=== PATIENT | male | born 2000 | race Caucasian/White ===

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

== ENCOUNTER 2022-12-14 10:17 | Emergency (ER) | payer OTHER, MEDICAID, SELFPAY ==
[2022-12-14 10:18] VITALS: BP 152/103; PULSE 71; RESP 16; TEMP 36.1; O2SAT 100; BMI 33.7
--- NOTE | 2022-12-14 10:57 | CM.ED ---
Social Work SW spoke with patient regarding no PCP and gave provider resources. Karli Chavez VOCATIONAL TECHNICAL EDUCATION DIRECTOR, CHIEF CREDIT OFFICER
[2022-12-14] MEDS: 0.9% Normal Saline 1,000 ML 1000 ML IV (11:26)
[2022-12-14] MEDS: diazePAM 5 MG Tablet 2.5 MG PO (11:30)
[2022-12-14 11:32] LABS: Absolute Lymphocyte Count 2.19 X10^3/uL (0.83-4.51); Absolute Neutrophil Count 3.7 X10^3/uL (2.0-7.7); Basophil# 0.05 X10^3/uL; Basophil% 0.7 % (0-1); Eosinophil# 0.26 X10^3/uL; Eosinophils% 3.8 % (0-5); Hematocrit 42.3 % (40-54); Hemoglobin 13.8 g/dL (13.0-16.5); Lymphocyte # 2.19 X10^3/ul (0.83-4.51); Lymphocyte % 32.3 % (19-41); Mean Corp Hgb Conc 32.6 g/dL (32-36); Mean Corpuscular Hgb 28.4 pg (27.0-32.0); Mean Platelet Vol. 9.1 fl (6.2-12.0); Monocyte# 0.51 X10^3/uL; Monocyte% 7.5 % (0-10); NRBC Flagged by Analyzer 0 % (0-5); Neutrophil # 3.74 X10^3/uL (2.7-7.7); Neutrophil % 55.4 % (47-70); Platelet Count 358 K/mm3 (150-450); RBC Distribution Width CV 13.2 % (11.6-14.6); RBC Distribution Width SD 41.4 fl (35.1-43.9); Red Blood Count 4.86 M/mm3 (4.6-6.2); White Blood Count 6.8 K/mm3 (4.4-11.0)
[2022-12-14 11:47] LABS: Anion Gap 5 (5-15); BUN 13 mg/dL (7-18); BUN/Creat Ratio 17.9 RATIO (10-20); Calcium,Total 9.2 mg/dL (8.5-10.1); Chloride 108 mmol/L (98-107); Creatinine, Serum 0.73 mg/dL (0.70-1.30); EST Glomerular Filtration Rate 144 mL/min (>60); Est Glom Filt Rate - Afr Amer 175 mL/min (>60); Estimated Creatinine Clearance 212.14 ml/min; Glucose 103 mg/dL (74-106); Potassium 4.2 mmol/L (3.5-5.1); Sodium Level 140 mmol/L (136-145)
--- NOTE | 2022-12-14 12:10 | EX.ED.DYSGE1 ---
HPI History of Present Illness Chief Complaint: Dizziness Informant: patient Onset/Context/Timing Onset: Yesterday Context: Gradual Onset Timing: Continuous Quality: Moving sensation Location: Generalized Worsened by: Head movement Relieved by: Laying down Narrative Narrative: Patient present with dizziness that began yesterday. Patient describes as a moving and spinning sensation. Patient states it is worse whenever he moves his head. Patient states it is better whenever he lays down. Patient denies any hearing changes or tinnitus. Patient denies any pain in his ears. Patient does admit to some nausea but denies any vomiting. Patient admits to a mild headache. Patient denies any fevers or chills. PFSH PFS Medical History (Updated 12/14/22 @ 12:[address] Duong Bean DO) Hx of vertigo Home Medications diazepam 2 mg tablet 2 mg PO TID PRN PRN Vertigo #10 TABLETS 12/14/22 [Rx Last Taken Unknown] Allergy/AdvReac Type Severity Reaction Status Date / Time banana Allergy Anaphylaxis Verified 12/14/22 10:19 carrot Allergy Anaphylaxis Verified 12/14/22 10:19 cefpodoxime [From Vantin] Allergy Hives Verified 12/14/22 10:19 watermelon Allergy Anaphylaxis Verified 12/14/22 10:19 Surgical History (Updated 12/14/22 @ 12:[address] Duong Bean DO) Hx of tonsillectomy Social History Smoking Status: Never smoker ROS ROS ED Constitutional Constitutional ED: Denies chills or fever(s) Eyes Eyes: Denies blurry vision or change in vision ENT ENT ED: Denies rhinorrhea or sore throat Cardiovascular Cardiovascular: Denies chest pain or palpitations Respiratory/Chest Respiratory/Chest: Denies cough or dyspnea Gastrointestinal Gastrointestinal: Reports nausea; Denies vomiting Genitourinary Genitourinary ED: Denies dysuria or hematuria Musculoskeletal Musculoskeletal: Denies back pain or neck pain Integumentary Denies abscess or rash Neurologic Neurologic: Reports headache(s); Denies weakness Allergic/Immunologic Allergic/Immunologic ED: Denies mouth swelling or urticaria EXAM Physical Exam Const Vital Signs: 12/14/22 10:18 12/14/22 10:45 Temperature 97.0 F L Temperature Source Temporal Pulse Rate 71 Respiratory Rate 16 Respiratory Effort Normal Non-Labored Blood Pressure 152/103 H Blood Pressure Mean 119 Pulse Ox 100 Oxygen Delivery Method Room Air Positive well nourished and well developed General Appearance ED: well developed HEENT Reports moist mucous membranes Eyes PERRL and EOMs intact bilaterally Eyes Narrative: There is some mild nystagmus with left lateral gaze. This did reproduce the patient's symptoms. Neck supple and no JVD Resp normal respiratory effort and clear to auscultation bilaterally Cardio regular rate, regular rhythm and no murmurs GI normal to inspection, nondistended, normoactive bowel sounds and non-tender Palpation: soft Extremity normal to inspection General Extremety ED: Negative for edema or tenderness General Extremity: Negative for edema Neuro oriented x3, CN's II-XII intact bilaterally and no sensory deficits noted Sensorium / Orientation: alert Motor Exam: strength 5/5 throughout Psych mental status grossly normal Skin no rashes or lesions noted [facility] Lab Data Attestation: I reviewed the patient's lab results. Lab results narrative: CBC was reviewed and was within normal limits. Basic metabolic profile was reviewed and was within normal limits. Labs: Laboratory Results - last 24 hr 12/14/22 12/14/22 11:28 11:28 WBC 6.8 RBC 4.86 Hgb 13.8 Hct 42.3 MCV 87.0 MCH 28.4 MCHC 32.6 RDW Std Deviation 41.4 RDW Coeff of Mary Kate 13.2 Plt Count 358 MPV 9.1 Immature Gran % (Auto) 0.300 Neut % (Auto) 55.4 Lymph % (Auto) 32.3 [place] % (Auto) 7.5 Eos % (Auto) 3.8 Baso % (Auto) 0.7 Absolute Neuts (auto) 3.7 Absolute Lymphs (auto) 2.19 Nucleated RBC % 0 Sodium 140 Potassium 4.2 Chloride 108 H Carbon Dioxide 27.0 Anion Gap 5 BUN 13 Creatinine 0.73 Estim Creat Clear Calc 212.14 Est GFR (MDRD) Af Amer 175 Est GFR (MDRD) Non-Af 144 BUN/Creatinine Ratio 17.9 Glucose 103 Calcium 9.2 Treatment and Re-Evaluation :: Patient was given IV fluids and Valium. Patient is feeling better on reevaluation. Patient still has mild nystagmus with left lateral gaze but states his symptoms are much improved. Patient was given a prescription for Valium. Patient was instructed to follow-up with his primary care physician in 5 to 7 days. Patient understood and was agreeable with the plan. All questions were answered. Discharge Plan Triage Chief Complaint: Dizziness ED Provider: Duong Bean Dx/Rx/DC Orders Clinical Impression: Vertigo Instructions: ED Vertigo, Unspecified Prescriptions: New diazepam [diazepam] 2 mg tablet 2 mg PO TID PRN PRN (Reason: Vertigo) Qty: 10 0RF Primary Care Provider: Care Physician,No Primary Referrals: Carolyn Klein MD [Med Staff - [facility]] - 5-7 Days Care Physician,No Primary [Primary Care Provider] - Disposition Disposition: Home, Self Care
[2022-12-14 12:56] VITALS: BP 119/85; PULSE 64; RESP 16; O2SAT 100
== END 2022-12-14 12:58 | disposition home or self-care (01) ==
PROVIDERS: Emergency Provider Emergency Medicine; Visit Provider Emergency Medicine
DX: R42 Dizziness and giddiness (principal); R11.0 Nausea
CPT/HCPCS: 80048; 85025; 96360; 96361; 99284